=== PATIENT | male | born 1945 | race Caucasian/White ===

== ENCOUNTER 2016-12-01 08:19 | Outpatient (CLI) | payer MEDICARE, OTHER ==
[~2016-12-01 08:19] MED LIST: ALENDRONATE SOD70 MG PO; ASCORBIC ACID500 M2 PO; ASPIRIN 81MG TA81 MG PO; CARVEDILOL12.5 MG PO; CIPRO 500MG TA500 MG PO; COUMADIN 2.5MG2.5 MG PO; COUMADIN 5MG TAB5 MG PO; DILTIAZEM30 MG PO; FUROSEMIDE 40MG40 M1 PO; KEFLEX 500MG.500 MG PO; LISINOPRIL 10MG10 MG PO; LORTAB 5/3251 TAB PO; LOVENOX 10100 MG/11 SC; SIMVASTATIN10 MG PO; VITAMIN C500 M3 PO; WARFARIN SOD5 MG PO; XARELTO20 MG PO; [UNRECOGNIZED DRUG - OTHER] IJ
== END 2016-12-01 09:13 ==
LOC: ACC 08:19
DX: I48.1 Persistent atrial fibrillation (principal); Z79.01 Long term (current) use of anticoagulants; Z51.81 Encounter for therapeutic drug level monitoring
CPT/HCPCS: G0463

== ENCOUNTER 2017-01-19 10:05 | Emergency (ER) | payer MEDICARE, OTHER ==
[~2017-01-19] VITALS: Ht 170.2 cm; Wt 90.3 kg
--- OUTSIDE RECORDS SUMMARY | 2017-01-19 10:08 | External Medical Summary Rpt ---
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
--- OUTSIDE RECORDS SUMMARY | 2017-01-19 10:08 | External Medical Summary Rpt ---
Author Author [employer] Organization [employer] Address Unknown Phone Unavailable Purpose Continuity of Care Document - through 2016
--- OUTSIDE RECORDS SUMMARY | 2017-01-19 10:08 | External Medical Summary Rpt ---
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
--- OUTSIDE RECORDS SUMMARY | 2017-01-19 10:09 | External Medical Summary Rpt ---
Author Author CHRIS Luther, CHRIS Luther Organization [employer] Address Unknown Phone Unavailable
--- OUTSIDE RECORDS SUMMARY | 2017-01-19 10:09 | External Medical Summary Rpt ---
Demographics Preferred Language Kazakh Marital Status Unknown Sabianism Affiliation Unknown Race Unknown Ethnic Group Unknown Author Author , Organization [employer] Address Unknown Phone Unavailable Purpose Continuity of Care Document - through 2016 Immunization No patient found.
--- OUTSIDE RECORDS SUMMARY | 2017-01-19 10:09 | External Medical Summary Rpt ---
Demographics Preferred Language Ukrainian Marital Status Unknown Mu-Ism Affiliation Unknown Race Unknown Ethnic Group Unknown Author Author , Organization [employer] Address Unknown Phone Unavailable Purpose Continuity of Care Document - through 2016 Immunization No patient found.
[2017-01-19] MEDS ORDERED: CLOPIDOGREL75 M2 PO (10:21)
[2017-01-19 10:53] LABS: HEMOGLOBIN 14.9 g/dL (14.1-18.0); LYMPH % 17.3 % (10-50)
[2017-01-19 11:16] LABS: BUN 24 mg/dL (7-18)
[2017-01-19 11:17] LABS: GFR (ESTIMATED) 55 ML/MIN (>60)
[2017-01-19] MEDS ORDERED: PERCOCET1 TA1 PO (12:29)
--- NOTE | 2017-01-19 12:29 | Emergency Room Report ---
History of Present Illness Time Seen by MD 1030 Presenting Problem in Triage Pt arrived:Walked Presenting Problem:PT REPORTS PAIN SHARP CONTACT PAIN IN UPPER BACK AREA. PT STATES PAIN HAS BEEN GOING ON X1 WEEK. PT STATES IF HE TAKES A DEEP BREATH PAIN SHOOTS THROUGH TO HER CHEST. 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 N Clinical Suspician of Infection? N Mental Status: 1 - Regular (Normal Baseline) Sepsis Risk:Low Sepsis Risk Have you (or family members/close friends) recently traveled outside the [place]? N If Yes, where/when: Have you had exposure to infectious disease within the past month? N TB? Other? Specify: Source patient, RN notes reviewed, family, RN/MD Exam Limitations no limitations Comment This is a 71-year-old male patient arriving to the emergency room with upper back pain for the past 2 weeks. Patient advised that he has been seen twice at 2 other different emergency room's, one at [facility], and the other one at the [facility]. Patient has a history of kyphoplasty at Q17-X3-T2, in the past. She denies any recent trauma, however he advised that his pain today is significantly worse and different in quality to pain ever experienced before. Patient is also denying any focal neurological deficit. Patient was referred to an MRI by his PCP, for this past Monday, however patient is Mizzy appointment because he is unable to lay down for such test (MRI). 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 ALLERGIES Coded Allergies: codeine ("MAKES CRAZY" 09/19/15) morphine (SWELLING 09/19/15) Home Medications Reported Medications Simvastatin 10 MG PO DAILY Ascorbic Acid (Vitamin C) 500 MG PO DAILY Alendronate Sodium 70 MG PO WEEKLY WARFARIN SOD (Coumadin) 2.5 MG PO SuTuThSa Furosemide 40 MG PO DAILY #30 Carvedilol 25 MG PO BID DILTIAZEM HCL (Diltiazem HCl) 30 MG PO BID LISINOPRIL (Lisinopril) 5 MG PO DAILY WARFARIN SOD (Coumadin) 5 MG PO M,W,F CLOPIDOGREL BISULFATE (Clopidogrel) 75 MG PO DAILY #90 History Medical History General CAD? Yes Angina: Yes [place]: No Hypertension? Yes Hyperlipidemia? Yes CHF? No DVT? No PE? No COPD? No Asthma? No Anemia? No GERD? Yes Gastric ulcers? Yes GI Bleed? No Hernia? No Thyroid Problems? No Hypothyroidism? No CVA? No Seizures? No Diabetes? No Renal Insuffiency? No End Stage Renal Disease? No UTI? Yes Stones? No GB Disease: No Nephritic Syndrome? No Asplenia? No Hepatitis? No Sickle Cell Disease? No Arthritis? Yes Migraines? No Cataracts? Yes Glaucoma? No MRSA? No HIV? No TB? No Anxiety? No Depression? No Cancer? No More? Yes Additional hx: AFIB Immunization Hx DT/Tetanus Unknown Flu 2015-17FSN Pneumonia Received In Past Surgical Hx Previous Surgery?Y BACK 12/27/11 COLONOSCOPY RT FOOT STAPH INFECTION Cholecystectomy BOWEL RESECTION Orthopedic Procedures HEART STENTS X2 "LONG AGO CARDIAC STENTS X5 [id number] Family History Family Hx Diabetes No CAD No Hypertension Yes Hyperlipidemia Yes Cancer Yes TB No Social History Smoking Hx Smoker: Current Every Day Smoker Tobacco: Yes Type Cigarettes Packs/day < 1 Pack Alcohol Alcohol: Yes Review of Systems All Other Systems Reviewed and Negative Musculoskeletal back pain Physical Exam Vital Signs Vital Signs Date Time Temp Pulse Resp B/P Pulse O2 O2 Flow FiO2 Ox Delivery Rate 01/19 1239 97.4 89 18 111/66 95 01/19 1135 100 20 94/52 95 01/19 1131 20 01/19 1009 97.5 88 22 133/82 95 General Appearance normal appearance, WD/WN, severe distress Neck normal inspection, non-tender, supple, full range of motion Respiratory Status Yes: trachea midline, chest symmetrical, non tender chest. No: respiratory distress. Lung Sounds bilateral: normal breath sounds, lungs clear. 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 Yes Kiran was queried for this patient? Yes Reference #: [id number] Risks/benefits of using a controlled substance for treatment were discussed w/pt by me Comment Upon reevaluation the patient appears medically stable, clinically improved. I have called several places in [place], but it turned out that no facility has a standing MRI. I was finally able to find the closest standing MRI in [facility]. Facility and contact information given to patient in order to make arrangements to travel there as soon as possible for such status. Results/Orders Laboratory Tests 01/19/17 1045: Sodium 138, Potassium 3.4 L, Chloride 101, Carbon Dioxide 28, BUN 24 H, Creatinine 1.3, Estimated Creat Clear 68, Estimated GFR (MDRD) 55, Glucose 96, Calcium 8.8, Total Bilirubin 1.1 H, AST 19, ALT 22, Alkaline Phosphatase 79, Creatine Kinase 60, CK-MB (CK-2) Rel Index 2.3, CK and CKMB Interp 1.4, Troponin I < 0.02, Total Protein 8.0, Albumin 3.9, Globulin 4.1 H, Albumin/Globulin Ratio 1.0 L, WBC 5.7, RBC 4.64, Hgb 14.9, Hct 44.2, MCV 95.2, RDW 13.5, Plt Count 172, MPV 6.6 L, Gran % 75.0, Gran # 4.2, Lymphocytes % 17.3, Monocytes % 5.8, Eosinophils % 1.4, Basophils % 0.6, Lymphocytes # 1.0, Monocytes # 0.3, Eosinophils # 0.1, Basophils # 0.0, PUBS MCHC 33.7, MCH 32.1 H 01/19/17 1020: PT 18.1 H, INR 1.69 H Current Medication Orders Sig/Kathryn Start time Last Medication Dose Route Stop Time Status Admin Potassium Chloride 0 .STK-MED ONE 01/19 1235 DC PO Potassium Chloride 40 MEQ ONCE ONE 01/19 1215 DC 01/19 PO 01/19 1216 1236 Hydromorphone HCl 1 MG ONCE ONE 01/19 1130 DCr 01/19 IV 01/19 1131 1131 Ondansetron HCl 4 MG ONCE ONE 01/19 1130 DC 01/19 IV 01/19 1131 1132 Hydromorphone HCl 0 .STK-MED ONE 01/19 1128 DCr .ROUTE Ondansetron HCl 0 .STK-MED ONE 01/19 1128 DC .ROUTE Sodium Chloride 10 ML PRN PRN 01/19 1030 DCD IV 01/20 1018 Orders Procedure Date/time Status PROTHROMBIN TIME 01/19 1022 Complete ELECTROCARDIOGRAM REQUEST 01/19 1019 Active IV SALINE LOCK 01/19 1019 Active CBC WITH AUTO DIFF 01/19 1019 Complete CARDIAC ENZYMES 01/19 1019 Complete CHEM 12 PROFILE 01/19 1019 Complete 12 LEAD EKG-BESSON (INITIAL) 01/19 UNK Active XRAY/CT/US XRAY/CT/US XRAY chest XR interpretation by discussed w/radiologist Xray Results abnormal Comment The radiologist report, no T-spine or L-spine regular fracture, multiple old rib fractures - by Dr. Benjamin Moreno. Departure Departure Time of Disposition 1222 Disposition DC Home or Self Care(routine) Clinical Impression Primary Impression: Thoracic spine pain Secondary Impressions: Chronic back pain Qualifiers: Back pain location: thoracic back pain Back pain laterality: midline Qualified Code: M54.6 - Pain in thoracic spine Condition STABLE Patient Instructions Thoracic Back Pain Additional Instructions Please follow up with: [email or web address] [address] [place] [address] [email or web address] as soon as possible, in order to conduct your MRI at a facility with a standing MRI machine (closest available). Please follow up with your [facility] primary care physician regarding your other medical needs. Please finding attached prescription for pain medications, to be taken as directed. Discharge Counseling Counseled pt/family regarding diagnosis, test results, medications/RX, home care, follow up needs Comment Please follow up with: [facility] [address] [place] [address] [place] [phone] [email or web address] as soon as possible, in order to conduct your MRI at a facility with a standing MRI machine (closest available). Please follow up with your [facility] primary care physician regarding your other medical needs. Please finding attached prescription for pain medications, to be taken as directed. Prescriptions Current Visit Scripts OXYCODONE HCL/ACETAMINOPHEN (Percocet 10-325 MG Tablet) 1 TAB PO TIDP PRN pain #15 TAB ED Critical Care Critical Care No at [id number]
--- NOTE | 2017-01-19 12:29 | Emergency Room Report ---
History of Present Illness Time Seen by MD 1030 Presenting Problem in Triage Pt arrived:Walked Presenting Problem:PT REPORTS PAIN SHARP CONTACT PAIN IN UPPER BACK AREA. PT STATES PAIN HAS BEEN GOING ON X1 WEEK. PT STATES IF HE TAKES A DEEP BREATH PAIN SHOOTS THROUGH TO HER CHEST. 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 N Clinical Suspician of Infection? N Mental Status: 1 - Regular (Normal Baseline) Sepsis Risk:Low Sepsis Risk Have you (or family members/close friends) recently traveled outside the [place]? N If Yes, where/when: Have you had exposure to infectious disease within the past month? N TB? Other? Specify: Source patient, RN notes reviewed, family, RN/MD Exam Limitations no limitations Comment This is a 71-year-old male patient arriving to the emergency room with upper back pain for the past 2 weeks. Patient advised that he has been seen twice at 2 other different emergency room's, one at [facility], and the other one at the [facility]. Patient has a history of kyphoplasty at G18-L9-M4, in the past. She denies any recent trauma, however he advised that his pain today is significantly worse and different in quality to pain ever experienced before. Patient is also denying any focal neurological deficit. Patient was referred to an MRI by his PCP, for this past Monday, however patient is Mizzy appointment because he is unable to lay down for such test (MRI). 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 ALLERGIES Coded Allergies: codeine ("MAKES CRAZY" 09/19/15) morphine (SWELLING 09/19/15) Home Medications Reported Medications Simvastatin 10 MG PO DAILY Ascorbic Acid (Vitamin C) 500 MG PO DAILY Alendronate Sodium 70 MG PO WEEKLY WARFARIN SOD (Coumadin) 2.5 MG PO SuTuThSa Furosemide 40 MG PO DAILY #30 Carvedilol 25 MG PO BID DILTIAZEM HCL (Diltiazem HCl) 30 MG PO BID LISINOPRIL (Lisinopril) 5 MG PO DAILY WARFARIN SOD (Coumadin) 5 MG PO M,W,F CLOPIDOGREL BISULFATE (Clopidogrel) 75 MG PO DAILY #90 History Medical History General CAD? Yes Angina: Yes [place]: No Hypertension? Yes Hyperlipidemia? Yes CHF? No DVT? No PE? No COPD? No Asthma? No Anemia? No GERD? Yes Gastric ulcers? Yes GI Bleed? No Hernia? No Thyroid Problems? No Hypothyroidism? No CVA? No Seizures? No Diabetes? No Renal Insuffiency? No End Stage Renal Disease? No UTI? Yes Stones? No GB Disease: No Nephritic Syndrome? No Asplenia? No Hepatitis? No Sickle Cell Disease? No Arthritis? Yes Migraines? No Cataracts? Yes Glaucoma? No MRSA? No HIV? No TB? No Anxiety? No Depression? No Cancer? No More? Yes Additional hx: AFIB Immunization Hx DT/Tetanus Unknown Flu 2015-17FSN Pneumonia Received In Past Surgical Hx Previous Surgery?Y BACK 12/27/11 COLONOSCOPY RT FOOT STAPH INFECTION Cholecystectomy BOWEL RESECTION Orthopedic Procedures HEART STENTS X2 "LONG AGO CARDIAC STENTS X5 [id number] Family History Family Hx Diabetes No CAD No Hypertension Yes Hyperlipidemia Yes Cancer Yes TB No Social History Smoking Hx Smoker: Current Every Day Smoker Tobacco: Yes Type Cigarettes Packs/day < 1 Pack Alcohol Alcohol: Yes Review of Systems All Other Systems Reviewed and Negative Musculoskeletal back pain Physical Exam Vital Signs Vital Signs Date Time Temp Pulse Resp B/P Pulse O2 O2 Flow FiO2 Ox Delivery Rate 01/19 1239 97.4 89 18 111/66 95 01/19 1135 100 20 94/52 95 01/19 1131 20 01/19 1009 97.5 88 22 133/82 95 General Appearance normal appearance, WD/WN, severe distress Neck normal inspection, non-tender, supple, full range of motion Respiratory Status Yes: trachea midline, chest symmetrical, non tender chest. No: respiratory distress. Lung Sounds bilateral: normal breath sounds, lungs clear. 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 Yes Kiran was queried for this patient? Yes Reference #: [id number] Risks/benefits of using a controlled substance for treatment were discussed w/pt by me Comment Upon reevaluation the patient appears medically stable, clinically improved. I have called several places in [place], but it turned out that no facility has a standing MRI. I was finally able to find the closest standing MRI in [facility]. Facility and contact information given to patient in order to make arrangements to travel there as soon as possible for such status. Results/Orders Laboratory Tests 01/19/17 1045: Sodium 138, Potassium 3.4 L, Chloride 101, Carbon Dioxide 28, BUN 24 H, Creatinine 1.3, Estimated Creat Clear 68, Estimated GFR (MDRD) 55, Glucose 96, Calcium 8.8, Total Bilirubin 1.1 H, AST 19, ALT 22, Alkaline Phosphatase 79, Creatine Kinase 60, CK-MB (CK-2) Rel Index 2.3, CK and CKMB Interp 1.4, Troponin I < 0.02, Total Protein 8.0, Albumin 3.9, Globulin 4.1 H, Albumin/Globulin Ratio 1.0 L, WBC 5.7, RBC 4.64, Hgb 14.9, Hct 44.2, MCV 95.2, RDW 13.5, Plt Count 172, MPV 6.6 L, Gran % 75.0, Gran # 4.2, Lymphocytes % 17.3, Monocytes % 5.8, Eosinophils % 1.4, Basophils % 0.6, Lymphocytes # 1.0, Monocytes # 0.3, Eosinophils # 0.1, Basophils # 0.0, PUBS MCHC 33.7, MCH 32.1 H 01/19/17 1020: PT 18.1 H, INR 1.69 H Current Medication Orders Sig/Kathryn Start time Last Medication Dose Route Stop Time Status Admin Potassium Chloride 0 .STK-MED ONE 01/19 1235 DC PO Potassium Chloride 40 MEQ ONCE ONE 01/19 1215 DC 01/19 PO 01/19 1216 1236 Hydromorphone HCl 1 MG ONCE ONE 01/19 1130 DCr 01/19 IV 01/19 1131 1131 Ondansetron HCl 4 MG ONCE ONE 01/19 1130 DC 01/19 IV 01/19 1131 1132 Hydromorphone HCl 0 .STK-MED ONE 01/19 1128 DCr .ROUTE Ondansetron HCl 0 .STK-MED ONE 01/19 1128 DC .ROUTE Sodium Chloride 10 ML PRN PRN 01/19 1030 DCD IV 01/20 1018 Orders Procedure Date/time Status PROTHROMBIN TIME 01/19 1022 Complete ELECTROCARDIOGRAM REQUEST 01/19 1019 Active IV SALINE LOCK 01/19 1019 Active CBC WITH AUTO DIFF 01/19 1019 Complete CARDIAC ENZYMES 01/19 1019 Complete CHEM 12 PROFILE 01/19 1019 Complete 12 LEAD EKG-BESSON (INITIAL) 01/19 UNK Active XRAY/CT/US XRAY/CT/US XRAY chest XR interpretation by discussed w/radiologist Xray Results abnormal Comment The radiologist report, no T-spine or L-spine regular fracture, multiple old rib fractures - by Dr. Benjamin Moreno. Departure Departure Time of Disposition 1222 Disposition DC Home or Self Care(routine) Clinical Impression Primary Impression: Thoracic spine pain Secondary Impressions: Chronic back pain Qualifiers: Back pain location: thoracic back pain Back pain laterality: midline Qualified Code: M54.6 - Pain in thoracic spine Condition STABLE Patient Instructions Thoracic Back Pain Additional Instructions Please follow up with: [facility] [address] [place] [address] [email or web address] as soon as possible, in order to conduct your MRI at a facility with a standing MRI machine (closest available). Please follow up with your [facility] primary care physician regarding your other medical needs. Please finding attached prescription for pain medications, to be taken as directed. Discharge Counseling Counseled pt/family regarding diagnosis, test results, medications/RX, home care, follow up needs Comment Please follow up with: [facility] [address] [place] [address] [place] [phone] [email or web address] as soon as possible, in order to conduct your MRI at a facility with a standing MRI machine (closest available). Please follow up with your [facility] primary care physician regarding your other medical needs. Please finding attached prescription for pain medications, to be taken as directed. Prescriptions Current Visit Scripts OXYCODONE HCL/ACETAMINOPHEN (Percocet 10-325 MG Tablet) 1 TAB PO TIDP PRN pain #15 TAB ED Critical Care Critical Care No at [id number]
[2017-01-19 12:39] VITALS: BP 111/66
--- NOTE | 2017-01-19 14:28 | RADIOLOGY REPORT PS360 ---
CHEST(2 VIEWS-NOT PORTABLE) HISTORY: BACK PAIN ORDERING PHYSICIAN: Casimiro Schumacher MD PATIENT AGE: 71 years COMPARISON: 08/05/2015 FINDINGS: Unremarkable cardiovascular structures.. Old right-sided rib fractures with chronic pleural-parenchymal changes bilaterally. There has been prior kyphoplasty at T12, L1, and L2. There is mild wedging of T9. This however is chronic. No acute bony abnormalities are evident. Consider MRI or CT however more thorough evaluation IMPRESSION: Chronic changes, no change with no acute finding.
== END 2017-01-19 12:42 | disposition home or self-care (01) ==
LOC: ER 10:05
PROVIDERS: Emergency Medicine
DX: M54.6 Pain in thoracic spine (principal); I25.10 Atherosclerotic heart disease of native coronary artery without angina pectoris; I10 Essential (primary) hypertension; K21.9 Gastro-esophageal reflux disease without esophagitis; Z72.0 Tobacco use
CPT/HCPCS: J2405

== ENCOUNTER 2017-06-29 07:56 | Outpatient (CLI) | payer MEDICARE, OTHER ==
[~2017-06-29 07:56] MED LIST changes: +ADULT LOW DOSE81 MG PO; +CLOPIDOGREL75 M2 PO; +LANOXIN 0.120.125 MG PO; +PERCOCET1 TA1 PO; +PLAVIX 75MG TAB75 MG PO
== END 2017-06-29 15:40 ==
LOC: ACC 07:56
DX: Z79.01 Long term (current) use of anticoagulants (principal); Z51.81 Encounter for therapeutic drug level monitoring
CPT/HCPCS: G0463

== ENCOUNTER → 2017-07-25 | Outpatient (CLI) | payer MEDICARE, OTHER ==
[2017-07-25 10:05] LABS: HEMOGLOBIN 15.4 g/dL (14.1-18.0); LYMPH # 0.9 K/mm3 (0.7-4.5); LYMPH % 13.9 % (10-50)
[2017-07-25 11:25] LABS: BUN 17 mg/dL (7-18)
[2017-07-25 11:37] LABS: GFR (ESTIMATED) 60 ML/MIN (>60)
== END ==
LOC: LAB 09:20
PROVIDERS: Orthopaedic Surgery
DX: S83.282A Other tear of lateral meniscus, current injury, left knee, initial encounter (principal); Z01.818 Encounter for other preprocedural examination

== ENCOUNTER 2017-07-28 10:15 | Day surgery (SDC) | payer MEDICARE, OTHER ==
[~2017-07-28] VITALS: Ht 170.2 cm; Wt 86.6 kg
--- NOTE | 2017-07-28 14:58 | Anesthesia Record ---
Anesthesia Record Part I Total IV fluids: 900 EBL (ml): 25 Urine Output: 30 B/P: 131/69 % SaO2: 91 Pulse: 61 Resps: 18 Temp: 97.3 Patient is: Stable Stable to PACU at: 1454 at 1455
--- NOTE | 2017-07-28 14:59 | Anesthesia Record ---
Anesthesia Record Part II Discharge time: 1524 Destination: Same day surgery PACU nurse assessment review? Yes Patient is: Stable Anesthesia complications? No at 2336
--- NOTE | 2017-07-28 15:35 | Operative Note ---
Procedure/Operative Record Date of Procedure: 07/28/17 Pre-op diagnosis: LEFT knee lateral meniscal tear and lateral meniscal cyst Post-op diagnosis: Same Procedure performed: LEFT knee video arthroscopy and arthroscopic debridement of lateral meniscal tear and cyst Surgeon: Pb Diaz Ethylene Compressor Operator(s): Dr. Whitmore Anesthesia: Gen. anesthetic Indications: The patient is a 71-year-old male who has undergone a partial knee replacement medial aspect of his LEFT knee in the past. Since been quite successful however the patient has been troubled by recent lateral sided knee pain believe secondary to a cyst and a lateral meniscal tear on the anterior aspect of the meniscus. Video arthroscopy is indicated to remove the cyst and tear as this is failed to respond to conservative options Findings: Intraoperative findings showed the need to be stable. The skin was in excellent condition with no evidence of complications. Arthroscopic findings showed the [employer] [place] prosthesis medially to be in good position without evidence of loosening or failure. The polyethylene was in appropriate position. The anterior cruciate ligament and posterior cruciate ligament were visualized and no pathology noted. The patellofemoral joint was in excellent condition for a 71- year-old with minor chondromalacial changes. No loose bodies were identified. The cartilage laterally was in good condition especially given the patient's age. The posterior and lateral aspect of the meniscus showed age-related generative changes. There was a degenerative tear anteriorly with presence of a meniscal cyst. Description of procedure: The patient was taken to the operating room. He was prepped and draped in the usual sterile fashion. The knee was examined and a spinal needle introduced to ensure that appropriate orientation and positioning of the portals was ensured. We then injected the proposed portal sites with a small amount of repair the cane with epinephrine and a lateral portal was created through the cyst and tear itself. The arthroscope was introduced and a spinal needle used optimize positioning of the anteromedial portal. The operation was conducted through these two portals. A spinal needle was introduced in the suprapatellar pouch is doubtful. We first inspected the patellofemoral joint followed by inspection of the prosthesis, the notch and contents, and then by placing the patient in figure 4 position and inspected the lateral compartment. Debridement not consisted of placing the arthroscope medially and using a shaver and basket biters to remove the meniscal tear back to stable meniscal tissue. The meniscus was noted to sublux anteriorly as a normal finding. After debridement not, we switched portals and conducted additional debridement with the shaver. We then inspected the integrity of the remaining meniscus probing it and found it to be essentially stable with the aforementioned subluxation. We then used the shaver on suction to vacuum any bits and pieces of loose tissue, inspected the patellofemoral joint and notch again, vacuumed these areas, and vacuumed excess arthroscopic fluid from the knee and withdrew the arthroscopic equipment. Portals were closed with 4-0 nylon. Dressings were applied and the patient awakened and transported to the recovery room in satisfactory condition. A second surgeon, Dr. Whitmore, was necessary secondary to the complexity of this case given the location of the tear, the subluxation of the meniscus, and the presence of a partial knee replacement medially. These factors increase the difficulty of the case and justify the presence of a second surgeon to help manipulate the knee into appropriate position for visualization without placing the partial knee replacement at risk for damage or dislocation of the polyethylene. EBL (ml): 2 Complications: None Specimens: None at [id number]
[2017-07-28 16:56] VITALS: BP 131/73
== END 2017-07-28 16:12 | disposition home or self-care (01) ==
LOC: SDC 10:15
PROVIDERS: Orthopaedic Surgery
PROC: 0SBD4ZZ Excision of Left Knee Joint, Percutaneous Endoscopic Approach (ICD-10-PCS; principal; 2017-07-28 12:00)
DX: M23.201 Derangement of unspecified lateral meniscus due to old tear or injury, left knee (principal); M23.001 Cystic meniscus, unspecified lateral meniscus, left knee; Z96.652 Presence of left artificial knee joint; Z79.01 Long term (current) use of anticoagulants; Z79.02 Long term (current) use of antithrombotics/antiplatelets; Z79.82 Long term (current) use of aspirin; Z79.899 Other long term (current) drug therapy; Z88.5 Allergy status to narcotic agent; I10 Essential (primary) hypertension; Z90.49 Acquired absence of other specified parts of digestive tract; Z82.49 Family history of ischemic heart disease and other diseases of the circulatory system; F17.200 Nicotine dependence, unspecified, uncomplicated; I25.10 Atherosclerotic heart disease of native coronary artery without angina pectoris; Z95.5 Presence of coronary angioplasty implant and graft
CPT/HCPCS: J0131

== ENCOUNTER 2017-07-29 10:03 | Emergency (ER) | payer MEDICARE, OTHER ==
[~2017-07-29] VITALS: Ht 170.2 cm; Wt 86.2 kg
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
[2017-07-29 10:51] VITALS: BP 103/57
--- OUTSIDE RECORDS SUMMARY | 2017-07-29 11:08 | External Medical Summary Rpt | CCD ---
Author Author , CHRIS Organization CHRIS Address Unknown Phone [email or web address] Purpose Continuity of Care Document - 01-13-2017 through 2016 Problems Code Diagnosis DOS Provider Status M54.6 PAIN IN 01-16-2017 THORACIC SPINE Z98.890 OTHER 01-16-2017 SPECIFIED POSTPROCEDU RAL STATES I50.9 HEART 01-13-2017 FAILURE, UNSPECIFIED Z79.01 DESK MAKER 01-13-2017 (CURRENT) USE OF ANTICOAGULA NTS Z79.02 FPC 01-13-2017 (CURRENT) USE OF ANTITHROMBO TICS/ANTIPL ATELETS Z79.899 OTHER LONG 01-13-2017 TERM (CURRENT) DRUG THERAPY Z88.6 ALLERGY 01-13-2017 STATUS TO ANALGESIC AGENT STATUS D64.9 ANEMIA, UNSPECIFIED E78.4 OTHER HYPERLIPIDE ARANZA I10 ESSENTIAL (PRIMARY) HYPERTENSIO N I48.2 CHRONIC ATRIAL FIBRILLATIO N M54.9 DORSALGIA, UNSPECIFIED M79.606 PAIN IN LEG, UNSPECIFIED R31.9 HEMATURIA, UNSPECIFIED Z01.818 ENCOUNTER FOR OTHER PREPROCEDUR AL EXAMINATION Z51.81 ENCOUNTER FOR THERAPEUTIC DRUG LEVEL MONITORING Results Labs Lab Lab Date Result Refere Interp Status Commen Order Detail nces retati t Range on PT amp; PTT (prothrombin time and parti (07-28-2017 09:40) Comment: 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 Y Comment: PTT RESULTS MUST BE CALLED IF PT ON HEPARIN!!! N Activat = 26.1 23.6-34 complet ed 017 SECONDS .0 ed partial 09:40 thrombo plastin time (a Prothro = 11.9 9.4-11. complet mbin 017 SECONDS 8 ed time 09:40 (PT) in platele t poor p Whole = 1.10 0.9-1.1 complet blood 017 ed INR 09:40 measure ment Comment: INDICATION INR RANGE Comment: Comment: THERAPY FOR DVT, PE, ATRIAL FIB; 2.0 - 3.0 Comment: PROPHYLAXIS FOR VTE Comment: Comment: THERAPY FOR MECHANICAL HEART 2.5 - 3.5 Comment: VALVE; PREVENTION OF SYSTEMIC Comment: EMBOLISM SECONDARY TO AMI Basic metabolic panel (07-25-2017 09:21) Serum = 133 136-145 complet sodium 017 mmoL/L ed measure 09:21 ment Serum 2 = 4.0 3.5-5.1 complet potassi 017 mmoL/L ed um 09:21 measure ment Serum = 109 74-106 complet or 017 mg/dL ed plasma 09:21 glucose measure ment (mas Estimat = 60 >60 complet ed 017 ML/MIN ed glomeru 09:21 lar filtrat ion rate (GF Comment: REFERENCE RANGE: >60 ML/MIN/1.73 SQUARE METERS Comment: If this patient is -Turkmen, then multiply the Comment: result by 1.210. Serum = 1.2 0.70-1. complet or 017 mg/dL 30 ed plasma 09:21 creatin ine measure ment ( Carbon = 31 21.0-32 complet dioxide 017 mmoL/L .0 ed 09:21 measure ment Serum = 98 98-107 complet or 017 mmoL/L ed plasma 09:21 chlorid e measure ment (mo Serum = 8.8 8.5-10. complet or 017 mg/dL 1 ed plasma 09:21 calcium measure ment (mas Serum = 17 7-18 complet or 017 mg/dL ed plasma 09:21 urea nitroge n measure men CBC w auto diff (07-25-2017 09:21) Baso % = 0.6 % 0.1-2.0 complet 017 ed 09:21 Blood = 6.8 4.8-10. complet leukocy 017 K/MM3 8 ed anna 09:21 count (number /volume ) Automat = 13.1 11.5-17 complet ed 017 % .5 ed erythro 09:21 cyte distrib ution width Red = 4.91 4.6-6.2 complet blood 017 M/mm3 ed cell 09:21 count Blood = 181 142-424 complet platele 017 K/mm3 ed t count 09:21 Automat = 7.6 7.4-10. complet ed 017 fl 4 ed blood 09:21 platele t mean volume janey Treutlen % = 8.9 % 1.7-9.3 complet 017 ed 09:21 Absolut = 0.6 0.1-1.0 complet e 017 K/mm3 ed monocyt 09:21 e count Automat = 92.4 82.2-97 complet ed 017 fl .8 ed erythro 09:21 cyte mean corpusc ular v Automat = 33.9 31.8-35 complet ed 017 g/dl .4 ed erythro 09:21 cyte mean corpusc ular h Mean = 31.3 27-31.2 complet corpusc 017 pg ed ular 09:21 hemoglo bin (MCH) determ Lymphoc = 13.9 10-50 complet yte 017 % ed count, 09:21 blood, automat ed Absolut = 0.9 0.7-4.5 complet e 017 K/mm3 ed lymphoc 09:21 yte count Blood = 15.4 14.1-18 complet hemoglo 017 g/dL .0 ed bin 09:21 measure ment (mass/v olum Blood = 45.4 42.0-52 complet hematoc 017 % .0 ed rit 09:21 (volume fractio n) Granulo = 75.7 37.0-80 complet cyte 017 % .0 ed percent 09:21 age Blood = 5.1 1.3-8.0 complet granulo 017 K/mm3 ed cytes 09:21 automat ed count (numb Automat = 1.0 % 0.1-12. complet ed 017 0 ed blood 09:21 eosinop hils/10 0 leukocy t Automat = 0.1 0.0-0.4 complet ed 017 K/mm3 ed blood 09:21 eosinop hil count Automat = 0.0 0-0.2 complet ed 017 K/MM3 ed blood 09:21 basophi l count (count/ vo Whole blood INR measurement (06-29-2017 09:00) Whole = 2.0 0.9-1.1 complet blood 017 ed INR 09:00 measure ment Comment: Comment: Results sent to: Primitivo Case MD 06/29/17 3660 Comment: Radames Dugan Pharmacist recommendation for Warfarin Comment: therapy is: PATIENT INR 2.0 TODAY VIA FINGERSTICK. Comment: RECOMMENDED PATIENT CONTINUE WITH CURRENT DOSE OF WARFARIN Comment: 5 MG ON MON/FRI; 2.5 MG ON MON/MON/MON/MARIYA/SAT. Comment: Comment: FOR DETAILED INFORMATION-PLEASE REVIEW PROGRESS NOTE Comment: IN THE ASSESSMENTS AND ANTICOAGULATION CLINIC SECTION Comment: ANTICOAGULATION CLINIC IN PCI/CLINICAL REVIEW Comment: INDICATION INR RANGE Comment: Comment: THERAPY FOR DVT, PE, ATRIAL FIB; 2.0 - 3.0 Comment: PROPHYLAXIS FOR VTE Comment: Comment: THERAPY FOR MECHANICAL HEART 2.5 - 3.5 Comment: VALVE; PREVENTION OF SYSTEMIC Comment: EMBOLISM SECONDARY TO AMI
--- OUTSIDE RECORDS SUMMARY | 2017-07-29 11:08 | External Medical Summary Rpt | CCD ---
Demographics Preferred Language Swedish Marital Status Unknown Advent Affiliation Unknown Race Unknown Ethnic Group Unknown Author Author , CHRIS PEREZ Address Unknown Phone Immunization Unable to retrieve immunization data due to connection failure with Immunization Registry. Please try again later.
--- OUTSIDE RECORDS SUMMARY | 2017-07-29 11:08 | External Medical Summary Rpt | CCD ---
Demographics Preferred Language Citizen Of [place] Marital Status Unknown Rastafarian Affiliation Unknown Race Unknown Ethnic Group Unknown Author Author , CHRIS PEREZ Address Unknown Phone Immunization Unable to retrieve immunization data due to connection failure with Immunization Registry. Please try again later.
--- OUTSIDE RECORDS SUMMARY | 2017-07-29 11:08 | External Medical Summary Rpt | CCD ---
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 [...] blood 09:21 platele t mean volume janey Bland % = 8.9 % 1.7-9.3 complet 017 [...] Results sent to: Primitivo Case MD 06/29/17 1131 Comment: Radames Dugan Pharmacist recommendation for Warfarin [...]
== END 2017-07-29 11:06 | disposition home or self-care (01) ==
LOC: ER 10:03
DX: M96.830 Postprocedural hemorrhage of a musculoskeletal structure following a musculoskeletal system procedure (principal); Z88.6 Allergy status to analgesic agent; I10 Essential (primary) hypertension; E78.5 Hyperlipidemia, unspecified; I48.2 Chronic atrial fibrillation

== ENCOUNTER 2017-08-09 08:12 | Outpatient (CLI) | payer MEDICARE, OTHER | END 2017-08-09 14:59 | LOC: ACC 08:12 | DX: I48.2 Chronic atrial fibrillation (principal); Z79.01 Long term (current) use of anticoagulants; Z51.81 Encounter for therapeutic drug level monitoring | CPT/HCPCS: G0463 ==

== ENCOUNTER 2017-08-23 08:32 | Outpatient (CLI) | payer MEDICARE, OTHER | END 2017-08-23 15:00 | LOC: ACC 08:32 | DX: I48.2 Chronic atrial fibrillation (principal); Z79.01 Long term (current) use of anticoagulants; Z51.81 Encounter for therapeutic drug level monitoring | CPT/HCPCS: G0463 ==